=== PATIENT | female | born 1975 | race Caucasian/White ===

== ENCOUNTER 2016-04-04 02:41 | Inpatient (IN) | payer MEDICAID ==
[~2016-04-04] VITALS: Ht 162.6 cm; Wt 209.2 kg
[2016-04-04] MEDS ORDERED: VANCOMYCIN 2,500 MG in SODIUM CHLORIDE 0.9% 500 ML IV ONE (04:40)
[2016-04-04] MEDS ORDERED: PHARMACY TO DOSE ZOSYN IV SCH (05:15)
[2016-04-04] MEDS ORDERED: GLUCAGON 1 MG VIAL IM PRN (05:15)
[2016-04-04] MEDS ORDERED: PHARMACY TO DOSE VANCOMYCIN IV SCH (05:15)
[2016-04-04] MEDS ORDERED: SALINE FLUSH 10 ML FLUSH PRN (05:15)
[2016-04-04] MEDS ORDERED: DEXTROSE 50% SYRINGE 50 ML IV PRN (05:15)
[2016-04-04] MEDS ORDERED: VANCOMYCIN 1,500 MG in SODIUM CHLORIDE 0.9% 250 ML IV ONE (05:40)
[2016-04-04] MEDS ORDERED: VANCOMYCIN 1,000 MG in SODIUM CHLORIDE 0.9% 250 ML IV ONE (05:40)
[2016-04-04 08:09] VITALS: BP_SYST 125; RESP 18; TEMP 97.4
[2016-04-04 08:26] VITALS: BMI 79.2
[2016-04-04] MEDS: PIPERACIL/TAZO 3.375GM/50ML 50 ML IV SCH ×3 (08:52→20:11)
[2016-04-04] MEDS: SODIUM CHLORIDE 0.9% FLUSH BAG 500 ML IV SCH (08:52)
[2016-04-04] MEDS: SALINE FLUSH 10 ML FLUSH SCH ×2 (08:53→20:11)
[2016-04-04] MEDS: ENOXAPARIN 40 MG/0.4 ML SYR SUBQ SCH (08:54)
[2016-04-04 09:15] VITALS: Ht 162.6 cm; Wt 209.2 kg
[2016-04-04 09:33] VITALS: RESP 18
[2016-04-04] MEDS ORDERED: LORATADINE 5 MG/5 ML PO SCH (11:00)
[2016-04-04 11:34] VITALS: BP_SYST 119; RESP 18; TEMP 97.9
[2016-04-04] MEDS: LORATADINE 5 MG/5 ML PO SCH (13:56)
[2016-04-04] MEDS: VANCOMYCIN 1,750 MG in SODIUM CHLORIDE 0.9% 500 ML IV SCH ×2 (14:43→22:48)
[2016-04-04 16:50] VITALS: BP_SYST 132; RESP 18; TEMP 98.2
[2016-04-04] MEDS: Furosemide 20 MG/2 ML VIAL IV SCH (17:56)
[2016-04-04 19:54] VITALS: BP_SYST 117; RESP 20; TEMP 97.9
[2016-04-04] MEDS: DAKIN'S 0.125% 480 ML TOPICAL SCH (21:00)
[2016-04-04] MEDS: COLLAGENASE OINT 30 GM TOPICAL SCH (21:50)
[2016-04-04] MEDS: Ibuprofen 800 MG TAB PO PRN (22:57)
[2016-04-04 23:13] VITALS: BP_SYST 136; TEMP 97.7
[2016-04-05] MEDS: PIPERACIL/TAZO 3.375GM/50ML 50 ML IV SCH ×4 (03:27→18:00)
[2016-04-05 04:10] VITALS: BP_SYST 113; TEMP 98
[2016-04-05] MEDS: VANCOMYCIN 1,750 MG in SODIUM CHLORIDE 0.9% 500 ML IV SCH ×2 (05:51→14:00)
[2016-04-05] MEDS: SODIUM CHLORIDE 0.9% FLUSH BAG 500 ML IV SCH ×2 (05:51→05:52)
[2016-04-05 07:34] VITALS: BP_SYST 107; RESP 18; TEMP 97.8
[2016-04-05] MEDS: SALINE FLUSH 10 ML FLUSH SCH ×2 (08:07→22:11)
[2016-04-05] MEDS: Furosemide 20 MG/2 ML VIAL IV SCH ×2 (08:08→18:33)
[2016-04-05] MEDS: LORATADINE 5 MG/5 ML PO SCH (08:08)
[2016-04-05] MEDS: COLLAGENASE OINT 30 GM TOPICAL SCH ×2 (08:09→22:12)
[2016-04-05] MEDS: ENOXAPARIN 40 MG/0.4 ML SYR SUBQ SCH (08:09)
[2016-04-05] MEDS: DAKIN'S 0.125% 480 ML TOPICAL SCH (08:09)
[2016-04-05] MEDS: Ibuprofen 800 MG TAB PO PRN (08:13)
[2016-04-05 11:14] VITALS: BP_SYST 112; RESP 20; TEMP 97.5
[2016-04-05 16:03] VITALS: BP_SYST 133; RESP 20; TEMP 97.2
[2016-04-05] MEDS: VANCOMYCIN 1,250 MG in SODIUM CHLORIDE 0.9% 250 ML IV SCH (18:33)
[2016-04-05 19:09] VITALS: BP_SYST 139; RESP 18; TEMP 97.6
[2016-04-05] MEDS ORDERED: LEVEMIR INSULIN SUBQ SCH ×2 (21:00)
[2016-04-05] MEDS: ACETAMINOPHEN 325 MG TAB PO PRN (22:15)
[2016-04-05 22:19] VITALS: BP_SYST 138; RESP 20; TEMP 97.4
[2016-04-06] MEDS: PIPERACIL/TAZO 3.375GM/50ML 50 ML IV SCH ×3 (01:08→12:08)
[2016-04-06] MEDS: VANCOMYCIN 1,250 MG in SODIUM CHLORIDE 0.9% 250 ML IV SCH ×2 (01:41→08:20)
[2016-04-06] MEDS: SODIUM CHLORIDE 0.9% FLUSH BAG 500 ML IV SCH (05:50)
[2016-04-06 06:03] VITALS: BP_SYST 128; RESP 18; TEMP 98.4
[2016-04-06 07:39] VITALS: BP_SYST 132; RESP 18; TEMP 98
[2016-04-06] MEDS: SALINE FLUSH 10 ML FLUSH SCH ×2 (08:00→22:36)
[2016-04-06] MEDS: LORATADINE 5 MG/5 ML PO SCH (08:19)
[2016-04-06] MEDS: COLLAGENASE OINT 30 GM TOPICAL SCH ×2 (08:19→22:37)
[2016-04-06] MEDS: ENOXAPARIN 40 MG/0.4 ML SYR SUBQ SCH (08:19)
[2016-04-06 11:20] VITALS: BP_SYST 125; RESP 18; TEMP 98.3
[2016-04-06] MEDS: ACETAMINOPHEN 325 MG TAB PO PRN ×2 (12:07→22:31)
[2016-04-06 14:55] VITALS: BP_SYST 147; RESP 18; TEMP 97.5
[2016-04-06] MEDS: LORATADINE 10 MG TAB PO SCH (15:10)
[2016-04-06] MEDS: CEFTRIAXONE 1 GM in SODIUM CHLORIDE 0.9% 50 ML IV SCH (15:10)
[2016-04-06 20:09] VITALS: BP_SYST 147; RESP 18; TEMP 97.9
[2016-04-06] MEDS ORDERED: LEVEMIR INSULIN SUBQ SCH (21:00)
[2016-04-06] MEDS ORDERED: MISSING DOSE XX ONE (21:25)
[2016-04-06] MEDS: METFORMIN 500 MG TAB PO SCH (22:32)
[2016-04-06] MEDS: LEVEMIR INSULIN SUBQ SCH (22:33)
[2016-04-06 23:01] VITALS: BP_SYST 148; RESP 18; TEMP 97.8
[2016-04-07 03:25] VITALS: BP_SYST 148; RESP 20; TEMP 97.8
[2016-04-07] MEDS: SODIUM CHLORIDE 0.9% FLUSH BAG 500 ML IV SCH (05:18)
[2016-04-07] MEDS: ACETAMINOPHEN 325 MG TAB PO PRN (05:18)
[2016-04-07 07:33] VITALS: BP_SYST 130; RESP 20; TEMP 97.9
[2016-04-07] MEDS: COLLAGENASE OINT 30 GM TOPICAL SCH ×2 (09:00→21:45)
[2016-04-07] MEDS: CEFTRIAXONE 1 GM in SODIUM CHLORIDE 0.9% 50 ML IV SCH (09:09)
[2016-04-07] MEDS: LORATADINE 10 MG TAB PO SCH (09:09)
[2016-04-07] MEDS: METFORMIN 500 MG TAB PO SCH ×2 (09:09→21:42)
[2016-04-07] MEDS: SALINE FLUSH 10 ML FLUSH SCH ×2 (09:10→19:45)
[2016-04-07] MEDS: ENOXAPARIN 40 MG/0.4 ML SYR SUBQ SCH (09:10)
[2016-04-07 10:40] VITALS: BP_SYST 122; RESP 20; TEMP 97.3
[2016-04-07] MEDS ORDERED: DIPHENHYDRAMINE 25 MG CAP PO PRN (11:20)
[2016-04-07] MEDS ORDERED: MISSING DOSE XX ONE (11:25)
[2016-04-07] MEDS: MICONAZOLE 2% PWD TOPICAL SCH ×2 (11:36→21:44)
[2016-04-07] MEDS ORDERED: PHARMACY TO DOSE VANCOMYCIN IV SCH (11:50)
[2016-04-07] MEDS: VANCOMYCIN 1,250 MG in SODIUM CHLORIDE 0.9% 250 ML IV SCH ×2 (14:27→22:40)
[2016-04-07 16:57] VITALS: BP_SYST 139; RESP 20; TEMP 97.6
[2016-04-07] MEDS: TRAMADOL 50 MG TAB PO PRN (18:30)
[2016-04-07 19:54] VITALS: BP_SYST 140; RESP 20; TEMP 97.5
[2016-04-07] MEDS: LEVEMIR INSULIN SUBQ SCH (21:44)
[2016-04-07 23:20] VITALS: BP_SYST 139; RESP 18; TEMP 97.7
[2016-04-08 03:34] VITALS: BP_SYST 124; RESP 18; TEMP 98
[2016-04-08] MEDS: TRAMADOL 50 MG TAB PO PRN ×5 (03:48→22:35)
[2016-04-08] MEDS: SODIUM CHLORIDE 0.9% FLUSH BAG 500 ML IV SCH (06:39)
[2016-04-08] MEDS: VANCOMYCIN 1,250 MG in SODIUM CHLORIDE 0.9% 250 ML IV SCH ×3 (06:39→23:18)
[2016-04-08 07:17] VITALS: BP_SYST 147; RESP 16; TEMP 97.6
[2016-04-08] MEDS: SALINE FLUSH 10 ML FLUSH SCH ×2 (07:30→22:34)
[2016-04-08] MEDS: COLLAGENASE OINT 30 GM TOPICAL SCH ×2 (09:00→21:00)
[2016-04-08] MEDS: LORATADINE 10 MG TAB PO SCH (09:22)
[2016-04-08] MEDS: METFORMIN 500 MG TAB PO SCH ×2 (09:22→22:39)
[2016-04-08] MEDS: CEFTRIAXONE 1 GM in SODIUM CHLORIDE 0.9% 50 ML IV SCH (09:23)
[2016-04-08] MEDS: MICONAZOLE 2% PWD TOPICAL SCH ×2 (09:23→23:16)
[2016-04-08] MEDS: ENOXAPARIN 40 MG/0.4 ML SYR SUBQ SCH (09:23)
[2016-04-08 11:23] VITALS: BP_SYST 128; RESP 18; TEMP 97.8
[2016-04-08 15:24] VITALS: BP_SYST 120; RESP 18; TEMP 97.6
[2016-04-08] MEDS: CLINDAMYCIN 600 MG in DEXTROSE 5% 50 ML IV SCH (17:32)
[2016-04-08 19:38] VITALS: BP_SYST 121; RESP 18; TEMP 97.6
[2016-04-08 22:34] VITALS: BP_SYST 116; RESP 18; TEMP 97.8
[2016-04-08] MEDS: LEVEMIR INSULIN SUBQ SCH (22:34)
[2016-04-09] MEDS: CLINDAMYCIN 600 MG in DEXTROSE 5% 50 ML IV SCH ×2 (01:32→08:58)
[2016-04-09] MEDS: TRAMADOL 50 MG TAB PO PRN ×4 (03:37→18:46)
[2016-04-09 04:00] VITALS: BP_SYST 131; RESP 18; TEMP 97.9
[2016-04-09] MEDS: VANCOMYCIN 1,250 MG in SODIUM CHLORIDE 0.9% 250 ML IV SCH ×2 (06:42→14:04)
[2016-04-09] MEDS: SODIUM CHLORIDE 0.9% FLUSH BAG 500 ML IV SCH (06:42)
[2016-04-09 07:26] VITALS: BP_SYST 122; RESP 20; TEMP 97.9
[2016-04-09] MEDS: SALINE FLUSH 10 ML FLUSH SCH ×2 (08:00→20:00)
[2016-04-09] MEDS: METFORMIN 500 MG TAB PO SCH ×2 (09:00→21:49)
[2016-04-09] MEDS: ENOXAPARIN 40 MG/0.4 ML SYR SUBQ SCH (09:01)
[2016-04-09] MEDS: LORATADINE 10 MG TAB PO SCH (09:01)
[2016-04-09] MEDS: COLLAGENASE OINT 30 GM TOPICAL SCH ×2 (09:02→21:51)
[2016-04-09] MEDS: MICONAZOLE 2% PWD TOPICAL SCH ×2 (09:02→21:50)
[2016-04-09] MEDS: CEFTRIAXONE 1 GM in SODIUM CHLORIDE 0.9% 50 ML IV SCH (10:35)
[2016-04-09 10:51] VITALS: BP_SYST 120; RESP 20; TEMP 98
[2016-04-09 15:05] VITALS: BP_SYST 132; RESP 20; TEMP 98.6
[2016-04-09 20:36] VITALS: BP_SYST 119; RESP 20; TEMP 97.6
[2016-04-09] MEDS: AMOXICILLIN/CLAV 875 MG TAB PO SCH (21:49)
[2016-04-09] MEDS: LEVEMIR INSULIN SUBQ SCH (21:50)
[2016-04-10 00:30] VITALS: BP_SYST 125; RESP 20; TEMP 97.6
[2016-04-10 04:19] VITALS: BP_SYST 126; RESP 16; TEMP 98.4
[2016-04-10] MEDS: MICONAZOLE 2% PWD TOPICAL SCH (05:00)
[2016-04-10] MEDS: COLLAGENASE OINT 30 GM TOPICAL SCH (05:00)
[2016-04-10] MEDS: TRAMADOL 50 MG TAB PO PRN (05:30)
[2016-04-10] MEDS: SODIUM CHLORIDE 0.9% FLUSH BAG 500 ML IV SCH (06:00)
[2016-04-10 08:00] VITALS: BP_SYST 157; RESP 18; TEMP 97.9
[2016-04-10] MEDS: AMOXICILLIN/CLAV 875 MG TAB PO SCH (09:12)
[2016-04-10] MEDS: METFORMIN 500 MG TAB PO SCH (09:12)
[2016-04-10] MEDS: LORATADINE 10 MG TAB PO SCH (09:12)
[2016-04-10] MEDS: ENOXAPARIN 40 MG/0.4 ML SYR SUBQ SCH (09:14)
[2016-04-10] MEDS: SALINE FLUSH 10 ML FLUSH SCH (09:14)
[2016-04-10 10:50] VITALS: BP_SYST 111; RESP 16; TEMP 98.2
[2016-04-10 15:07] VITALS: BP_SYST 122; RESP 18; TEMP 98.1
[2016-04-10 15:21] VITALS: BP_SYST 122; RESP 18; TEMP 98.1
== END 2016-04-10 16:03 | disposition home or self-care (01) | DRG 638 ==
LOC: ENRESERVTM → ENRESERVDT → ER 02:41 → ENPENDDIS 05:12 → EMR 05:12 → 4NT 07:24
PROVIDERS: ADMIT Family Medicine Addiction Medicine; ATTEND Family Medicine Addiction Medicine
CPT/HCPCS: 36415; 80053; 80202; 82947; 83036; 83880; 85025; 85379; 87040; 87071; 87077; 87186; 93306; 94799; 96374; 99222; 99232; 99233; 99239

== ENCOUNTER 2016-04-13 12:29 | Emergency (ER) | payer MEDICAID ==
[2016-04-13] MEDS ORDERED: ONDANSETRON 4 MG VIAL ONE (13:17)
[2016-04-13] MEDS ORDERED: DILAUDID 1 MG/ML AMP ONE (13:17)
== END 2016-04-13 17:51 | disposition home or self-care (01) ==
LOC: ER 12:29
DX: R10.9 Unspecified abdominal pain (principal); Z79.899 Other long term (current) drug therapy; Z79.84 Long term (current) use of oral hypoglycemic drugs; Z79.4 Long term (current) use of insulin
CPT/HCPCS: 36415; 80053; 81001; 82947; 83630; 83690; 85025; 87045; 87046; 87088; 87493; 96374; 96375

== ENCOUNTER 2016-04-29 15:33 | Inpatient (IN) | payer MEDICAID ==
[~2016-04-29] VITALS: Ht 167.6 cm; Wt 202.4 kg
[2016-04-29] MEDS ORDERED: ONDANSETRON 4 MG VIAL ONE (16:38)
[2016-04-29] MEDS ORDERED: DILAUDID 1 MG/ML AMP ONE (16:38)
[2016-04-29] MEDS ORDERED: MORPHINE 4 MG/ML SYR ONE (17:46)
[2016-04-29] MEDS ORDERED: VANCOMYCIN 2,500 MG in SODIUM CHLORIDE 0.9% 500 ML IV STA (18:51)
[2016-04-29] MEDS ORDERED: GLUCAGON 1 MG VIAL IM PRN (18:55)
[2016-04-29] MEDS ORDERED: SALINE FLUSH 10 ML FLUSH PRN (18:55)
[2016-04-29] MEDS ORDERED: DEXTROSE 50% SYRINGE 50 ML IV PRN (18:55)
[2016-04-29] MEDS ORDERED: MORPHINE 2 MG/ML SYR IV PRN (18:55)
[2016-04-29] MEDS ORDERED: BISACODYL EC 5 MG TAB PO PRN (18:55)
[2016-04-29] MEDS ORDERED: ALU/MAG/SIM 30 ML UDC PO PRN (18:55)
[2016-04-29] MEDS ORDERED: BISACODYL 10 MG SUPP RECTAL PRN (18:55)
[2016-04-29] MEDS ORDERED: MAG HYDROX 30 ML UDC PO PRN (18:55)
[2016-04-29] MEDS ORDERED: SODIUM CHLORIDE 0.9% 1,000 ML IV SCH (19:40)
[2016-04-29] MEDS: SALINE FLUSH 10 ML FLUSH SCH (20:00)
[2016-04-29] MEDS ORDERED: PHARMACY TO DOSE VANCOMYCIN IV SCH (22:55)
[2016-04-29 23:12] VITALS: BP_SYST 116; BP_SYST 120; RESP 20; TEMP 100
[2016-04-29 23:14] VITALS: BMI 71.7
[2016-04-29 23:40] VITALS: RESP 18
[2016-04-30] MEDS: PIPERACIL/TAZO 3.375GM/50ML 50 ML IV SCH ×5 (00:05→23:24)
[2016-04-30] MEDS: VANCOMYCIN 1,500 MG in SODIUM CHLORIDE 0.9% 250 ML IV SCH ×3 (02:43→19:44)
[2016-04-30 03:58] VITALS: BP_SYST 102; RESP 22; TEMP 100.1
[2016-04-30] MEDS: SODIUM CHLORIDE 0.9% FLUSH BAG 500 ML IV SCH (05:17)
[2016-04-30] MEDS ORDERED: MISSING DOSE XX ONE ×2 (06:40→15:35)
[2016-04-30 07:15] VITALS: BP_SYST 120; RESP 24; TEMP 98.5
[2016-04-30] MEDS: ACETAMINOPHEN 325 MG TAB PO PRN ×3 (07:38→21:57)
[2016-04-30] MEDS: ENOXAPARIN 40 MG/0.4 ML SYR SUBQ SCH (08:22)
[2016-04-30] MEDS: SALINE FLUSH 10 ML FLUSH SCH ×2 (08:22→19:51)
[2016-04-30] MEDS ORDERED: KCL CR 20 MEQ TAB PO ONE (08:40)
[2016-04-30 09:57] VITALS: Ht 167.6 cm; Wt 202.4 kg
[2016-04-30 11:53] VITALS: BP_SYST 117; RESP 22; TEMP 98.1
[2016-04-30] MEDS: LORATADINE 10 MG TAB PO SCH (12:00)
[2016-04-30] MEDS: COLLAGENASE OINT 30 GM TOPICAL SCH ×3 (12:01→20:49)
[2016-04-30 15:09] VITALS: BP_SYST 135; RESP 22; TEMP 98.4
[2016-04-30] MEDS: DIPHENHYDRAMINE 25 MG CAP PO PRN (15:56)
[2016-04-30 19:16] VITALS: BP_SYST 125; RESP 22; TEMP 98.7
[2016-04-30] MEDS: SODIUM CHLORIDE 0.9% 1,000 ML IV SCH (19:45)
[2016-04-30] MEDS: LEVEMIR INSULIN SUBQ SCH (20:41)
[2016-04-30 23:17] VITALS: BP_SYST 113; RESP 22; TEMP 98.9
[2016-05-01] MEDS: DIPHENHYDRAMINE 25 MG CAP PO PRN (00:55)
[2016-05-01] MEDS: VANCOMYCIN 1,500 MG in SODIUM CHLORIDE 0.9% 250 ML IV SCH ×2 (02:29→11:09)
[2016-05-01] MEDS: TRAMADOL 50 MG TAB PO PRN (02:35)
[2016-05-01 03:32] VITALS: BP_SYST 128; RESP 22; TEMP 98.4
[2016-05-01] MEDS: SODIUM CHLORIDE 0.9% FLUSH BAG 500 ML IV SCH (04:51)
[2016-05-01] MEDS: PIPERACIL/TAZO 3.375GM/50ML 50 ML IV SCH ×2 (05:04→13:46)
[2016-05-01 07:20] VITALS: BP_SYST 125; RESP 22; TEMP 98.7
[2016-05-01] MEDS: SALINE FLUSH 10 ML FLUSH SCH ×2 (08:00→20:00)
[2016-05-01] MEDS: LORATADINE 10 MG TAB PO SCH (08:49)
[2016-05-01] MEDS: ACETAMINOPHEN 325 MG TAB PO PRN (08:49)
[2016-05-01] MEDS: ENOXAPARIN 40 MG/0.4 ML SYR SUBQ SCH (08:50)
[2016-05-01] MEDS: COLLAGENASE OINT 30 GM TOPICAL SCH (09:00)
[2016-05-01 11:26] VITALS: BP_SYST 102; RESP 20; TEMP 98.3
[2016-05-01] MEDS: LIDOCAINE 5% 700 MG PATCH TOPICAL SCH (12:00)
[2016-05-01] MEDS: SODIUM CHLORIDE 0.9% 1,000 ML IV SCH (15:11)
[2016-05-01 15:28] VITALS: BP_SYST 114; RESP 18; TEMP 98.5
[2016-05-01] MEDS: CEFTRIAXONE 1 GM in SODIUM CHLORIDE 0.9% 50 ML IV SCH (16:20)
[2016-05-01 19:37] VITALS: BP_SYST 136; RESP 20; TEMP 98.4
[2016-05-01] MEDS: MICONAZOLE 2% PWD TOPICAL SCH (21:00)
[2016-05-01] MEDS: OXYCODONE/APAP 5/325 TAB PO PRN (21:19)
[2016-05-01] MEDS: LEVEMIR INSULIN SUBQ SCH (21:27)
[2016-05-01] MEDS ORDERED: MISSING DOSE XX ONE (23:25)
[2016-05-01 23:46] VITALS: BP_SYST 119; RESP 20; TEMP 98.5
[2016-05-02] MEDS: OXYCODONE/APAP 5/325 TAB PO PRN ×5 (01:56→22:58)
[2016-05-02] MEDS: SODIUM CHLORIDE 0.9% 1,000 ML IV SCH (03:02)
[2016-05-02 03:25] VITALS: BP_SYST 111; RESP 20; TEMP 98.1
[2016-05-02 07:33] VITALS: BP_SYST 129; RESP 20; TEMP 98.5
[2016-05-02] MEDS: LIDOCAINE 5% 700 MG PATCH TOPICAL SCH (09:00)
[2016-05-02] MEDS: CEFTRIAXONE 1 GM in SODIUM CHLORIDE 0.9% 50 ML IV SCH (09:09)
[2016-05-02] MEDS: LORATADINE 10 MG TAB PO SCH (09:09)
[2016-05-02] MEDS: ENOXAPARIN 40 MG/0.4 ML SYR SUBQ SCH (09:10)
[2016-05-02] MEDS: MICONAZOLE 2% PWD TOPICAL SCH ×2 (09:12→20:51)
[2016-05-02 11:07] VITALS: BP_SYST 130; RESP 20; TEMP 98.1
[2016-05-02 15:05] VITALS: BP_SYST 156; RESP 20; TEMP 97.5
[2016-05-02 20:35] VITALS: BP_SYST 145; RESP 22; TEMP 98
[2016-05-02] MEDS: LEVEMIR INSULIN SUBQ SCH (21:14)
[2016-05-02 23:16] VITALS: BP_SYST 143; RESP 20; TEMP 98.2
[2016-05-03 02:46] VITALS: BP_SYST 117; RESP 20; TEMP 98
[2016-05-03] MEDS: SODIUM CHLORIDE 0.9% 1,000 ML IV SCH ×2 (02:48→16:09)
[2016-05-03] MEDS: OXYCODONE/APAP 5/325 TAB PO PRN ×5 (02:48→20:55)
[2016-05-03 07:17] VITALS: BP_SYST 141; RESP 20; TEMP 97.8
[2016-05-03] MEDS: CEFTRIAXONE 1 GM in SODIUM CHLORIDE 0.9% 50 ML IV SCH (08:25)
[2016-05-03] MEDS: LORATADINE 10 MG TAB PO SCH (08:25)
[2016-05-03] MEDS: ENOXAPARIN 40 MG/0.4 ML SYR SUBQ SCH (08:26)
[2016-05-03] MEDS: LIDOCAINE 5% 700 MG PATCH TOPICAL SCH (08:30)
[2016-05-03] MEDS ORDERED: DIPHENHYDRAMINE 50 MG/ML VIAL IV PRN (10:10)
[2016-05-03 11:55] VITALS: BP_SYST 122; RESP 18; TEMP 98
[2016-05-03 15:09] VITALS: BP_SYST 143; RESP 18; TEMP 97.6
[2016-05-03] MEDS: NYSTATIN SUSP FOR CPD 120 ML, DIPHENHYDRAMINE (FOR COMPOUND) 120 ML, HYDROCORT SOD SUC ... SWISH.SWAL SCH ×6 (17:00→20:50)
[2016-05-03] MEDS: MICONAZOLE 2% PWD TOPICAL SCH ×2 (18:37→20:46)
[2016-05-03 20:11] VITALS: BP_SYST 134; RESP 20; TEMP 97.9
[2016-05-03] MEDS: LEVEMIR INSULIN SUBQ SCH (21:05)
[2016-05-04 00:56] VITALS: BP_SYST 136; RESP 20; TEMP 98
[2016-05-04] MEDS: OXYCODONE/APAP 5/325 TAB PO PRN ×3 (03:18→23:09)
[2016-05-04 04:15] VITALS: BP_SYST 121; RESP 20; TEMP 98
[2016-05-04 07:52] VITALS: BP_SYST 131; RESP 20; TEMP 97.9
[2016-05-04] MEDS: LORATADINE 10 MG TAB PO SCH (08:44)
[2016-05-04] MEDS: CEFTRIAXONE 1 GM in SODIUM CHLORIDE 0.9% 50 ML IV SCH (08:44)
[2016-05-04] MEDS: ENOXAPARIN 40 MG/0.4 ML SYR SUBQ SCH (08:45)
[2016-05-04] MEDS: MICONAZOLE 2% PWD TOPICAL SCH ×2 (08:46→20:22)
[2016-05-04] MEDS: NYSTATIN SUSP FOR CPD 120 ML, DIPHENHYDRAMINE (FOR COMPOUND) 120 ML, HYDROCORT SOD SUC ... SWISH.SWAL SCH ×12 (08:46→20:22)
[2016-05-04] MEDS: LIDOCAINE 5% 700 MG PATCH TOPICAL SCH (08:54)
[2016-05-04] MEDS: SODIUM CHLORIDE 0.9% 1,000 ML IV SCH (09:51)
[2016-05-04] MEDS ORDERED: Furosemide 100 MG/10 ML VIAL IV ONE (11:10)
[2016-05-04 11:16] VITALS: BP_SYST 135; RESP 20; TEMP 97.4
[2016-05-04 15:25] VITALS: BP_SYST 137; RESP 20; TEMP 97.7
[2016-05-04 19:49] VITALS: BP_SYST 109; RESP 18; TEMP 97.9
[2016-05-04] MEDS: LEVEMIR INSULIN SUBQ SCH (20:30)
[2016-05-05 00:31] VITALS: BP_SYST 135; RESP 16; TEMP 98.3
[2016-05-05] MEDS ORDERED: MISSING DOSE XX ONE (02:45)
[2016-05-05 03:33] VITALS: BP_SYST 137; RESP 18; TEMP 98.5
[2016-05-05] MEDS: SOD CHL NASAL SPR 45ML NARE EACH PRN (03:51)
[2016-05-05 07:36] VITALS: BP_SYST 125; RESP 20; TEMP 97.6
[2016-05-05] MEDS: NYSTATIN SUSP FOR CPD 120 ML, DIPHENHYDRAMINE (FOR COMPOUND) 120 ML, HYDROCORT SOD SUC ... SWISH.SWAL SCH ×15 (08:39→19:37)
[2016-05-05] MEDS: MICONAZOLE 2% PWD TOPICAL SCH ×2 (08:39→20:22)
[2016-05-05] MEDS: LORATADINE 10 MG TAB PO SCH (08:40)
[2016-05-05] MEDS: OXYCODONE/APAP 5/325 TAB PO PRN ×3 (08:40→18:10)
[2016-05-05] MEDS: ENOXAPARIN 40 MG/0.4 ML SYR SUBQ SCH (08:41)
[2016-05-05] MEDS: CEFTRIAXONE 1 GM in SODIUM CHLORIDE 0.9% 50 ML IV SCH (08:41)
[2016-05-05] MEDS: LIDOCAINE 5% 700 MG PATCH TOPICAL SCH (08:42)
[2016-05-05 12:22] VITALS: BP_SYST 109; RESP 18; TEMP 98
[2016-05-05] MEDS ORDERED: Furosemide 20 MG/2 ML VIAL IV ONE (13:00)
[2016-05-05 14:14] VITALS: BP_SYST 118; RESP 20; TEMP 97.5
[2016-05-05 19:45] VITALS: BP_SYST 125; RESP 18; TEMP 97.7
[2016-05-05] MEDS: LEVEMIR INSULIN SUBQ SCH (21:47)
[2016-05-06] VITALS (7 sets, daily range): BP systolic 125–140; RESP 16–20; TEMP 97.6–98.4
[2016-05-06] MEDS: OXYCODONE/APAP 5/325 TAB PO PRN (02:41)
[2016-05-06] MEDS: TRAMADOL 50 MG TAB PO PRN ×2 (03:36→16:44)
[2016-05-06] MEDS: LIDOCAINE 5% 700 MG PATCH TOPICAL SCH (08:01)
[2016-05-06] MEDS: MICONAZOLE 2% PWD TOPICAL SCH ×2 (08:53→22:18)
[2016-05-06] MEDS: LORATADINE 10 MG TAB PO SCH (08:53)
[2016-05-06] MEDS: SALINE FLUSH 10 ML FLUSH SCH ×2 (08:54→22:14)
[2016-05-06] MEDS: SODIUM CHLORIDE 0.9% FLUSH BAG 500 ML IV SCH (08:54)
[2016-05-06] MEDS: ENOXAPARIN 40 MG/0.4 ML SYR SUBQ SCH (08:55)
[2016-05-06] MEDS: NYSTATIN SUSP FOR CPD 120 ML, DIPHENHYDRAMINE (FOR COMPOUND) 120 ML, HYDROCORT SOD SUC ... SWISH.SWAL SCH ×12 (08:55→21:00)
[2016-05-06] MEDS: CEFTRIAXONE 1 GM in SODIUM CHLORIDE 0.9% 50 ML IV SCH (08:55)
[2016-05-06] MEDS: ONDANSETRON 4 MG VIAL IV PUSH PRN (11:43)
[2016-05-06] MEDS: GABAPENTIN 100 MG CAP PO SCH ×3 (13:51→22:13)
[2016-05-06] MEDS: TRIAMCIN 0.1% OINT 15 GM TOPICAL SCH ×2 (13:52→22:18)
[2016-05-06] MEDS: LEVEMIR INSULIN SUBQ SCH (22:32)
[2016-05-07] MEDS: OXYCODONE/APAP 5/325 TAB PO PRN ×3 (01:34→22:47)
[2016-05-07 03:19] VITALS: BP_SYST 123; RESP 20; TEMP 98.1
[2016-05-07] MEDS ORDERED: SODIUM CHLORIDE 0.9% FLUSH BAG 500 ML IV SCH (06:00)
[2016-05-07] MEDS: SODIUM CHLORIDE 0.9% FLUSH BAG 500 ML IV SCH (06:58)
[2016-05-07 07:28] VITALS: BP_SYST 121; RESP 18; TEMP 97.8
[2016-05-07] MEDS: LIDOCAINE 5% 700 MG PATCH TOPICAL SCH (08:24)
[2016-05-07] MEDS: SOD CHL NASAL SPR 45ML NARE EACH PRN (08:31)
[2016-05-07] MEDS: LORATADINE 10 MG TAB PO SCH (08:32)
[2016-05-07] MEDS: GABAPENTIN 100 MG CAP PO SCH ×3 (08:32→20:55)
[2016-05-07] MEDS: ONDANSETRON 4 MG VIAL IV PUSH PRN (08:32)
[2016-05-07] MEDS: ENOXAPARIN 40 MG/0.4 ML SYR SUBQ SCH (08:33)
[2016-05-07] MEDS: CEFTRIAXONE 1 GM in SODIUM CHLORIDE 0.9% 50 ML IV SCH (08:33)
[2016-05-07] MEDS: SALINE FLUSH 10 ML FLUSH SCH ×2 (08:34→20:55)
[2016-05-07] MEDS: NYSTATIN SUSP FOR CPD 120 ML, DIPHENHYDRAMINE (FOR COMPOUND) 120 ML, HYDROCORT SOD SUC ... SWISH.SWAL SCH ×12 (08:34→22:00)
[2016-05-07] MEDS: MICONAZOLE 2% PWD TOPICAL SCH ×2 (08:36→21:00)
[2016-05-07] MEDS: TRIAMCIN 0.1% OINT 15 GM TOPICAL SCH ×2 (11:51→21:00)
[2016-05-07 12:01] VITALS: BP_SYST 117; RESP 18; TEMP 97.3
[2016-05-07 15:20] VITALS: BP_SYST 126; RESP 18; TEMP 97.5
[2016-05-07 19:35] VITALS: BP_SYST 134; RESP 20; TEMP 97.5
[2016-05-07] MEDS: LEVEMIR INSULIN SUBQ SCH (20:56)
[2016-05-07] MEDS ORDERED: MISSING DOSE XX ONE (21:05)
[2016-05-08 00:27] VITALS: BP_SYST 149; RESP 18; TEMP 98
[2016-05-08 03:00] VITALS: BP_SYST 122; RESP 20; TEMP 97.9
[2016-05-08] MEDS: OXYCODONE/APAP 5/325 TAB PO PRN ×2 (03:51→08:52)
[2016-05-08] MEDS: SODIUM CHLORIDE 0.9% FLUSH BAG 500 ML IV SCH (06:45)
[2016-05-08 08:14] VITALS: BP_SYST 136; RESP 20; TEMP 97.8
[2016-05-08] MEDS: SALINE FLUSH 10 ML FLUSH SCH (08:53)
[2016-05-08] MEDS: GABAPENTIN 100 MG CAP PO SCH (08:53)
[2016-05-08] MEDS: ENOXAPARIN 40 MG/0.4 ML SYR SUBQ SCH (08:54)
[2016-05-08] MEDS: NYSTATIN SUSP FOR CPD 120 ML, DIPHENHYDRAMINE (FOR COMPOUND) 120 ML, HYDROCORT SOD SUC ... SWISH.SWAL SCH ×3 (08:54)
[2016-05-08] MEDS: LORATADINE 10 MG TAB PO SCH (08:54)
[2016-05-08] MEDS: MICONAZOLE 2% PWD TOPICAL SCH (08:55)
[2016-05-08] MEDS: LIDOCAINE 5% 700 MG PATCH TOPICAL SCH (08:55)
[2016-05-08] MEDS: TRIAMCIN 0.1% OINT 15 GM TOPICAL SCH (08:56)
[2016-05-08] MEDS: CEFTRIAXONE 1 GM in SODIUM CHLORIDE 0.9% 50 ML IV SCH (08:59)
[2016-05-08 11:23] VITALS: BP_SYST 131; RESP 20; TEMP 97.6
[2016-05-08] MEDS ORDERED: BACITRACIN OINT TOPICAL SCH (12:05)
[2016-05-08 15:29] VITALS: BP_SYST 137; RESP 20; TEMP 97.7
[2016-05-08 15:50] VITALS: BP_SYST 137; RESP 20; TEMP 97.7
[2016-05-08] MEDS ORDERED: TRIAMCIN 0.1% OINT 15 GM TOPICAL SCH (21:00)
== END 2016-05-08 15:43 | disposition home or self-care (01) | DRG 603 ==
LOC: ENRESERVDT → ENRESERVTM → ER 15:33 → ENPENDDIS 18:54 → EMR 18:54 → 4THW 21:58 → 4NT 05-01 17:54
PROVIDERS: ADMIT Internal Medicine; ATTEND Internal Medicine
DX: L03.116 Cellulitis of left lower limb (principal); E87.1 Hypo-osmolality and hyponatremia; Z68.45 Body mass index [BMI] 70 or greater, adult; I89.0 Lymphedema, not elsewhere classified; E11.9 Type 2 diabetes mellitus without complications; E66.01 Morbid (severe) obesity due to excess calories; E87.6 Hypokalemia; Z79.84 Long term (current) use of oral hypoglycemic drugs; Z79.4 Long term (current) use of insulin; S81.802A Unspecified open wound, left lower leg, initial encounter; X58.XXXA Exposure to other specified factors, initial encounter; Y92.9 Unspecified place or not applicable
CPT/HCPCS: 36415; 80048; 80053; 80202; 82947; 83036; 83880; 83930; 83935; 84300; 85025; 85652; 87071; 87077; 87186; 93971; 94799; 96365; 96375; 99223; 99232; 99233; 99239